=== PATIENT | female | born 1985 | race African-American/Black ===

== ENCOUNTER 2020-12-19 02:59 | Emergency (ER) | payer SELFPAY ==
[~2020-12-19] VITALS: Ht 162.6 cm; Wt 72.0 kg
[2020-12-19 03:44] LABS: BASOPHILS % 0.9 % (0.0-2.0); EOSINOPHILS % 2.1 % (0.0-5.0); HEMATOCRIT. 40.4 % (36.0-48.0); HEMOGLOBIN. 13.1 g/dL (12.0-16.0); LYMPHOCYTES % 32.9 % (20.0-50.0); MEAN CORPUSCULAR VOLUME 83.6 fL (81.0-99.0); MONOCYTES % 7.4 % (2.0-8.0); NEUTROPHILS % 56.7 % (40.0-76.0); PLATELET 310 x1000/uL (130-400); RED BLOOD CELL COUNT 4.83 mill/uL (4.2-5.4); RED CELL DISTRIBUTION WIDTH 15.7 % (11.6-14.6)
[2020-12-19 03:46] LABS: CHLORIDE 111 mEq/L (98-107)
[2020-12-19 03:50] LABS: ETHANOL BLOOD < 10 mg/dL
[2020-12-19 03:54] LABS: HCG SCREEN NEGATIVE
[2020-12-19] MEDS: OLANZAPINE 10 MG/VIAL IM ONE (04:52)
[2020-12-19 08:52] LABS: CLARITY URINE CLEAR (CLEAR); COLOR URINE YELLOW (YELLOW); KETONES URINE NEGATIVE (NEGATIVE); LEUKOCYTE ESTERASE URINE 2+ (NEGATIVE); NITRITE URINE NEGATIVE (NEGATIVE); OCCULT BLOOD URINE NEGATIVE (NEGATIVE); PH URINE 6.5 (4.5-8.0); PROTEIN URINE NEGATIVE (NEGATIVE); SPECIFIC GRAVITY URINE 1.006 (1.005-1.030); UROBILINOGEN URINE 0.2 E.U./dL (0.2-1.0)
[2020-12-19 10:09] LABS: *AMPHETAMINES SCREEN URINE NEGATIVE (NEGATIVE); *BARBITURATES SCREEN URINE NEGATIVE (NEGATIVE); *BENZODIAZEPINES SCREEN URINE NEGATIVE (NEGATIVE); *COCAINE SCREEN URINE NEGATIVE (NEGATIVE); CANNABINOID URINE SCREEN NEGATIVE (NEGATIVE)
[2020-12-19 10:10] LABS: METHADONE URINE SCREEN NEGATIVE (NEGATIVE); OPIATES URINE SCREEN NEGATIVE (NEGATIVE); PHENCYCLIDINE URINE SCREEN NEGATIVE (NEGATIVE)
[2020-12-19 17:30] VITALS: BP 133/84
[2020-12-19] MEDS: NITROFURANTOIN 100MG M/M CAPSULE PO ONE (19:45)
[2020-12-19] MEDS ORDERED: NITR-87 MT (23:48)
== END 2020-12-20 00:30 | disposition home or self-care (01) ==
LOC: ER 03:12 → EDBD 03:12 → ER 12-20 00:30
DX: F29 Unspecified psychosis not due to a substance or known physiological condition (principal); I49.9 Cardiac arrhythmia, unspecified; Z20.822 Contact with and (suspected) exposure to COVID-19
CPT/HCPCS: 36415; 80048; 80305; 80307; 80320; 80329; 81003; 81025; 82962; 84703; 85025; 87086; 87426; 93005; 96372; 99285; J3490; G0480